=== PATIENT | male | born 1975 | race Caucasian/White ===

== ENCOUNTER 2016-09-18 09:09 | Emergency (ER) | payer OTHER ==
[~2016-09-18] VITALS: Ht 188 cm; Wt 158.8 kg
[2016-09-18 10:26] VITALS: BP 147/69
[2016-09-18] MEDS ORDERED: PRED20TA PO (10:38)
[2016-09-18] MEDS ORDERED: PROM118S2 PO (10:38)
[2016-09-18] MEDS ORDERED: PROAIR HFA8.5 GM INH (10:38)
--- NOTE | 2016-09-18 10:38 | PHYS DOC ---
Past Medical History Past Medical History: No Pertinent History Past Surgical History: Other Additional Past Surgical Histo: hernia repair x2 Additional Information: 5 cigarettes daily Alcohol Use: Rarely Drug Use: None Adult General Chief Complaint Chief Complaint: OTHER COMPLAINTS HPI HPI Patient is a 41 year old male with history of recurrent umbilical hernia who presents with productive cough for the last 3-4 days. Reports shortness of breath and nasal congestion with the cough. His main complaint is that the cough is causing his umbilical hernia to be very painful. He denies any fever, sore throat, or ear pain. He has not had any change in his bowel movements. He is still able to reduce his hernia. He has been taking [id number] cough syrup and cough drops without relief. He does not currently have a PCP. Review of Systems Review of Systems Constitutional: Denies fever or chills. [] Eyes: Denies change in visual acuity, redness, or eye pain. [] HENT: Denies ear pain or sore throat. Reports nasal congestion. Respiratory: Reports productive cough and shortness of breath. Cardiovascular: Denies chest pain, palpitations or edema. [] GI: Denies nausea, vomiting, bloody stools or diarrhea. Reports abdominal pain associated with umbilical hernia. Musculoskeletal: Denies back pain or joint pain. [] Integument: Denies rash or skin lesions. [] Neurologic: Denies headache, focal weakness or sensory changes. [] All systems reviewed and negative unless otherwise stated in the HPI. Allergies Allergies Allergies Coded Allergies Type Severity Reaction Last Updated Verified No Known Drug Allergies 09/18/16 No Physical Exam Physical Exam Constitutional: Well developed, well nourished, no acute distress, non-toxic appearance. [] HENT: Normocephalic, atraumatic, bilateral external ears normal, oropharynx moist, no oral exudates, nose normal. Bilateral TMs without erythema or bulging. There is no posterior pharyngeal erythema or tonsillar edema. Bilateral nasal turbinates are normal. Eyes: PERRLA, EOMI, conjunctiva normal, no discharge. [] Neck: Normal range of motion, no tenderness, supple, no stridor. [] Cardiovascular: Heart rate regular rhythm, no murmur [] Lungs & Thorax: Bilateral breath sounds clear to auscultation without wheezes, rales, or tenderness. Abdomen: Bowel sounds normal, soft, periumbilical tenderness, no masses, no pulsatile masses. There is a large, soft, reducible umbilical hernia with tenderness on palpation. Skin: Warm, dry, no erythema, no rash. [] Neurologic: Alert and oriented X 3, normal motor function, normal sensory function, no focal deficits noted. [] Psychologic: Affect normal, judgement normal, mood normal. [] Current Patient Data Vital Signs Vital Signs Date Time Temp Pulse Resp B/P Pulse Ox O2 Delivery O2 Flow Rate FiO2 09/18/16 10:26 92 18 147/69 96 Room Air 09/18/16 09:20 98.4 98.4 EKG EKG [] Radiology/Procedures Radiology/Procedures [] Course & Med Decision Making Course & Med Decision Making Pertinent Labs and Imaging studies reviewed. (See chart for details) [] Dragon Disclaimer Dragon Disclaimer This electronic medical record was generated, in whole or in part, using a voice recognition dictation system. Departure Departure Impression: Primary Impression: Bronchitis Disposition: 01 HOME, SELF-CARE Condition: STABLE Referrals: NO PCP (PCP) Patient Instructions: Acute Bronchitis, [id number], Hernia, [id number] Additional Instructions: You appear to have bronchitis, which is typically viral. Viral infections do not respond to antibiotics. Your hernia is still able to be pushed back into the abdominal wall. Follow-up with a general surgeon or return to the emergency department if it becomes hard and you're unable to push it back in place. Please take all of the prescribed steroids, even if you are feeling better. Please use the prescribed inhaler as needed for cough or shortness of breath. Do not use more often than directed. Please do not drive or operate heavy machinery while taking narcotic cough syrup. Return to the emergency department if you have any new or concerning symptoms. Scripts Promethazine Hcl/Codeine (Promethazine-Codeine Syrup)118 Ml Syrup5 Ml PO Q4- 6HRS PRN COUGH #120 ML Prov:LOLY SEGUNDO 09/18/16 Albuterol Sulfate (Proair Hfa Inhaler)8.5 Gm [email or web address] Puff INH Q4HRS PRN SHORTNESS OF BREATH #1 INHALER Prov:LOLY SEGUNDO 09/18/16 Prednisone 20 Mg Pebxpc71 Mg PO DAILY 5 Days Prov:LOLY SEGUNDO 09/18/16 LOLY SEGUNDO Sep 18, 2016 10:38
== END 2016-09-18 10:48 | disposition home or self-care (01) ==
LOC: ER 09:09
DX: J40 Bronchitis, not specified as acute or chronic (principal); K42.9 Umbilical hernia without obstruction or gangrene; F17.210 Nicotine dependence, cigarettes, uncomplicated
CPT/HCPCS: 99283